=== PATIENT | male | born 1995 | race Caucasian/White ===

== ENCOUNTER 2021-12-11 14:46 | Emergency (ER) | payer OTHER ==
[~2021-12-11] VITALS: Ht 172.7 cm; Wt 143.8 kg
[~2021-12-11 14:46] MED LIST: CYCLOBENZAPRINE10 MG PO; MINIPRESS2 MG PO; NAPROXEN250 MG PO
[2021-12-11] MEDS ORDERED: PREDNISONE20 MG PO (18:01)
[2021-12-11] MEDS ORDERED: HYDROCODON-ACE1 EA10 PO (18:01)
== END 2021-12-11 18:20 | disposition home or self-care (01) ==
LOC: ED 14:46
DX: M25.561 Pain in right knee (principal); Z79.899 Other long term (current) drug therapy
CPT/HCPCS: 73560

== ENCOUNTER 2022-06-11 11:28 | Emergency (ER) | payer OTHER ==
[~2022-06-11] VITALS: Ht 172.7 cm; Wt 151.5 kg
[~2022-06-11 11:28] MED LIST changes: +HYDROCODON-ACE1 EA10 PO; +PREDNISONE20 MG PO
[2022-06-11] MEDS ORDERED: ONDANSETRON ODT4 MG PO (16:22)
== END 2022-06-11 16:32 | disposition home or self-care (01) ==
LOC: ED 11:28
DX: R11.2 Nausea with vomiting, unspecified (principal); F43.10 Post-traumatic stress disorder, unspecified
CPT/HCPCS: 36415; 80053; 83690; 85025; 96374; 99284-25; J1790; J7030

== ENCOUNTER 2024-01-28 21:48 | Emergency (ER) | payer OTHER ==
[~2024-01-28] VITALS: Ht 172.7 cm; Wt 145.0 kg
[~2024-01-28 21:48] MED LIST changes: +ONDANSETRON ODT4 MG PO
[2024-01-28] MEDS ORDERED: DOXYCYCLINE HYCLATE 100 MG HOME.PACK PO ONE (22:15)
[2024-01-28 22:31] VITALS: BP 145/91
== END 2024-01-28 22:41 | disposition home or self-care (01) ==
LOC: ED 21:48
DX: L03.116 Cellulitis of left lower limb (principal)
CPT/HCPCS: 99283; A9270